=== PATIENT | female | born 1995 | race African-American/Black ===

== ENCOUNTER 2022-03-02 16:10 | Emergency (ER) | payer OTHER ==
[~2022-03-02] VITALS: Ht 175.3 cm; Wt 55.3 kg
[2022-03-02 16:17] VITALS: BP 112/74
--- NOTE | 2022-03-02 18:27 | NUR ---
Called for patient in lobby, no answer. Will try again later.
--- NOTE | 2022-03-02 18:30 | NUR ---
Patient ambulated to bed 3
--- NOTE | 2022-03-02 18:35 | NUR ---
Patient is requesting to go outside and inform family she has a bed. Patient will come back.
--- NOTE | 2022-03-02 18:45 | NUR ---
Patient ambulated to bed 3.
[2022-03-02] MEDS ORDERED: LIDOCAINE MPF 1% 10 MG/ML VIAL INJ ONE (18:50)
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
--- NOTE | 2022-03-02 19:02 | NUR ---
Chaperoned PADMINI Hernandez for coccyx exam.
--- NOTE | 2022-03-02 19:02 | NUR ---
PADMINI Hernandez at bedside performing procedure
--- NOTE | 2022-03-02 19:25 | NUR ---
Report given to JESUS Hatfield for transfer of care.
[2022-03-02] MEDS ORDERED: NAPR-54 PO (19:30)
[2022-03-02] MEDS ORDERED: LID5T TP (19:30)
[2022-03-02] MEDS ORDERED: CYCL-711 PO (19:30)
[2022-03-02] MEDS ORDERED: IBUPROFEN 600 MG TAB PO ONE (19:35)
[2022-03-02 19:46] VITALS: BP 112/74
--- NOTE | 2022-03-02 19:47 | NUR ---
Patient discharged with v/s stable. Written and verbal after care instructions given and explained. Patient alert, oriented and verbalized understanding of instructions. Ambulatory with steady gait. All questions addressed prior to discharge. ID band removed. Patient advised to follow up with PMD. Rx of FLEXERAL, LIDODERM & NAPROSYN given. Patient educated on indication of medication including possible reaction and side effects. Opportunity to ask questions provided and answered.
== END 2022-03-02 19:47 | disposition home or self-care (01) ==
LOC: MED 16:10
DX: S39.92XA Unspecified injury of lower back, initial encounter (principal); M53.3 Sacrococcygeal disorders, not elsewhere classified; X58.XXXA Exposure to other specified factors, initial encounter; Y93.89 Activity, other specified; Y92.89 Other specified places as the place of occurrence of the external cause; Y99.8 Other external cause status
CPT/HCPCS: 56405; 99284; J2001